=== PATIENT | male | born 1965 | race Caucasian/White ===

== ENCOUNTER → 2018-03-05 | Outpatient (CLI) | payer OTHER | END | disposition home or self-care (01) | LOC: CFH 08:31 | PROVIDERS: ATTEND Nurse Practitioner Family | DX: M65.341 Trigger finger, right ring finger (principal) ==

== ENCOUNTER → 2018-07-20 | Outpatient (CLI) | payer OTHER | END | disposition home or self-care (01) | LOC: CFH 11:22 | PROVIDERS: ATTEND Urology | DX: N50.3 Cyst of epididymis (principal) | CPT/HCPCS: 76870; 93975 ==

== ENCOUNTER 2019-09-22 10:00 | Day surgery (SDC) | payer OTHER ==
[~2019-09-22] VITALS: Ht 185.4 cm; Wt 79.0 kg
[~2019-09-22 10:00] MED LIST: None at this Time
[2019-09-22 10:27] VITALS: BP 109/70
[2019-09-22] MEDS ORDERED: LACTATED RINGERS 1,000 ML IV SCH (11:00)
[2019-09-22] MEDS ORDERED: BUPIVACAINE/PF 0.5% ONE (11:35)
[2019-09-22] MEDS ORDERED: PROPOFOL 10 MG/ML, 20ML ONE (11:41)
[2019-09-22] MEDS ORDERED: LIDOCAINE-MPF 2% ,5ML ONE (11:41)
[2019-09-22] MEDS ORDERED: MIDAZOLAM 1 MG/ML, 2ML ONE (11:41)
[2019-09-22] MEDS ORDERED: FENTANYL PF 100 MCG/2ML ONE (11:41)
[2019-09-22] MEDS ORDERED: ONDANSETRON 2MG/ML, 2ML ONE (11:49)
[2019-09-22] MEDS ORDERED: DEXAMETHASONE 4 MG/ML, 1ML ONE (11:49)
[2019-09-22] MEDS ORDERED: CEFAZOLIN 1,000 MG ONE (11:49)
[2019-09-22] MEDS ORDERED: MORPHINE SULFATE 4 MG/ML, 1ML IVPush PRN (12:30)
[2019-09-22] MEDS ORDERED: PROMETHAZINE 25 MG/ML, 1ML IV PRN (12:30)
[2019-09-22] MEDS ORDERED: FENTANYL PF 100 MCG/2ML IV PRN (12:30)
[2019-09-22] MEDS ORDERED: MEPERIDINE/PF 25MG/ML,1ML IVPush PRN (12:30)
[2019-09-22] MEDS ORDERED: OXYcodone 5 MG/5 ML ORAL.SOL UDC PO PRN (12:30)
[2019-09-22] MEDS ORDERED: KETOROLAC 30 MG/1 ML IV PRN (12:30)
[2019-09-22] MEDS ORDERED: KETOROLAC 30 MG/1 ML ONE (12:50)
== END 2019-09-22 13:50 | disposition home or self-care (01) ==
LOC: OUT 10:00
PROVIDERS: ATTEND Surgery
DX: R22.9 Localized swelling, mass and lump, unspecified (principal); D17.21 Benign lipomatous neoplasm of skin and subcutaneous tissue of right arm; Z87.891 Personal history of nicotine dependence; Z90.49 Acquired absence of other specified parts of digestive tract; Z98.890 Other specified postprocedural states; Z80.0 Family history of malignant neoplasm of digestive organs
CPT/HCPCS: 24071; 88305; J0690; J1100; J1885; J2250; J2405; J2704; J3010